=== PATIENT | female | born 1990 | race African-American/Black ===

== ENCOUNTER 2016-11-01 23:31 | Emergency (ER) | payer OTHER ==
[~2016-11-01] VITALS: Ht 160 cm; Wt 61.7 kg
[2016-11-01 23:40] VITALS: BP 143/98
--- NOTE | 2016-11-02 00:14 | PHYS DOC ---
Past Medical History Past Medical History: No Pertinent History Past Surgical History: Appendectomy, Other Additional Past Surgical Histo: Strabismus Alcohol Use: Rarely Drug Use: None, Marijuana Adult General Chief Complaint Chief Complaint: WOUND CHECK HPI HPI 26-year-old female presenting to the emergency department today with a wound on the right lower extremity. She reports it previously being an abscess on October 15. He was draining spontaneously. She was treated with antibiotics. Testing demonstrated positive for MRSA. Clindamycin used. Over the past 3 weeks patient has developed ulceration. She denies fevers chills or any redness. Onset 3 weeks. Location right lower extremity. Duration constant. No alleviating factors. Review of Systems Review of Systems ROS negative for headache fevers chills chest cough chest pain shortness of breath nausea vomiting. All other review of systems is negative unless otherwise noted in history of present illness. Allergies Allergies Allergies Coded Allergies Type Severity Reaction Last Updated Verified No Known Drug Allergies 06/15/14 No Physical Exam Physical Exam Constitutional: Well developed, well nourished, no acute distress, non-toxic appearance. [] HENT: Normocephalic, atraumatic, bilateral external ears normal, oropharynx moist, no oral exudates, nose normal. Eyes: PERRLA, EOMI, conjunctiva normal, no discharge. [] Neck: Normal range of motion, no tenderness, supple, no stridor. Cardiovascular:Heart rate regular rhythm, no murmur Lungs & Thorax: Bilateral breath sounds clear to auscultation [] Abdomen: Bowel sounds normal, soft, no tenderness, no masses, no pulsatile masses. Skin: Warm, dry, no erythema, no rash. [] Back: No tenderness, no CVA tenderness. Extremities: The patient's right lower extremity is warm and well perfused with palpable pulse. 2 second cap refill. Patient has a one and half to 2 cm ulcerative lesion on the lateral aspect of her right leg. No erythema. Not warm to touch. Otherwise extremities are unremarkable. Neurologic: Alert and oriented X 3, normal motor function, normal sensory function, no focal deficits noted. Psychologic: Affect normal, judgement normal, mood normal. [] Current Patient Data Vital Signs Vital Signs Date Time Temp Pulse Resp B/P Pulse Ox O2 Delivery O2 Flow Rate FiO2 11/01/16 23:40 98.3 109 14 143/98 99 Room Air 98.3 EKG EKG [] Radiology/Procedures Radiology/Procedures [] Course & Med Decision Making Course & Med Decision Making Pertinent Labs and Imaging studies reviewed. (See chart for details) 18-year-old female presenting to the emergency department with a history of an abscess formation treated with antibiotics and cultured positive for MRSA. Currently the patient's wound has developed into an ulceration which is an atypical progression of an abscess. At this point I feel best to refer the patient to our dermatology team for evaluation over the next 4-5 days with possible biopsy. The wound did not look infected and I did not feel that antibiotic treatment would improve the patient's wound at this time. Dragon Disclaimer Dragon Disclaimer This electronic medical record was generated, in whole or in part, using a voice recognition dictation system. Departure Departure Impression: Primary Impression: Ulcer Disposition: 01 HOME, SELF-CARE Condition: STABLE Referrals: NO PCP (PCP) DEB DENG MD Patient Instructions: Skin Ulcer Additional Instructions: Thank you for allowing us to participate in your care today. Followup with with our clinical research analyst within the next 7 days. If you do not have a primary care provider you can ask for a list of our primary care providers. Return to the emergency department you have any new or concerning findings. This should be evaluated by the primary care physician and any necessary consulting services for continued management within a few days after discharge. Return to emergency room if you have any new or concerning symptoms including but not limited to fever, chills, nausea, vomiting, intractable pain, any new rashes, chest pain, shortness of air, uncontrolled bleeding, difficulty breathing, and/or vision loss. CANDACE BONNER MD Nov 02, 2016 00:14
== END 2016-11-02 00:20 | disposition home or self-care (01) ==
LOC: ER 23:31
DX: L97.919 Non-pressure chronic ulcer of unspecified part of right lower leg with unspecified severity (principal); F12.10 Cannabis abuse, uncomplicated
CPT/HCPCS: 99281

== ENCOUNTER 2021-09-30 11:37 | Emergency (ER) | payer OTHER ==
[~2021-09-30] VITALS: Ht 160 cm; Wt 64.0 kg
[2021-09-30 13:57] VITALS: BP 102/58
[2021-09-30] MEDS ORDERED: ACETAMINOPHEN 500 MG TABLET PO ONE (14:15)
[2021-09-30] MEDS ORDERED: IV NORMAL SALINE 1000ML BAG 1,000 ML IV ONE ×2 (14:15)
[2021-09-30] MEDS ORDERED: ONDANSETRON PF 4 MG/2 ML VIAL. IVP ONE (14:15)
[2021-09-30 14:36] LABS: BASO % 0 % (0-3); EOS % 0 % (0-3); HEMATOCRIT 36.3 % (36.0-47.0); HEMOGLOBIN 12.5 g/dL (12.0-15.5); LYMPH # 0.7 x10^3/uL (1.0-4.8); LYMPH % 7 % (24-48); MEAN CORPUSCULAR HEMOGLOBIN 32 pg (25-35); MEAN CORPUSCULAR HGB CONC 34 g/dL (31-37); MEAN CORPUSCULAR VOLUME 94 fL (79-100); MONO # 1.4 x10^3/uL (0.0-1.1); MONO % 13 % (0-9); NEUT # 8.5 x10^3/uL (1.8-7.7); NEUT % 80 % (31-73); PLATELET COUNT 296 x10^3/uL (140-400); RED BLOOD COUNT 3.87 x10^6/uL (3.50-5.40); RED CELL DISTRIBUTION WIDTH 12.7 % (11.5-14.5); WHITE BLOOD COUNT 10.7 x10^3/uL (4.0-11.0)
[2021-09-30 15:09] LABS: CALCIUM 8.7 mg/dL (8.5-10.1); GFR 77.3; POTASSIUM 3.2 mmol/L (3.5-5.1)
[2021-09-30 15:13] LABS: ALBUMIN 3.9 g/dL (3.4-5.0); ALBUMIN/GLOBULIN RATIO 1.1 (1.0-1.7); MAGNESIUM 1.9 mg/dL (1.8-2.4); TOTAL BILIRUBIN 0.6 mg/dL (0.2-1.0); TOTAL PROTEIN 7.5 g/dL (6.4-8.2)
--- NOTE | 2021-09-30 15:31 | RAD ---
XR ABDOMEN COMP ACUTE History: Constipation, fever Comparison: None. Technique: Frontal chest with upright and supine radiographs of the abdomen and pelvis. Findings: Chest: Clear lungs. Normal cardiomediastinal silhouette. Bowel gas pattern: No excessive stool burden. Free air: None. Abnormal calcifications: None. Bones: Normal. Other: None. Impression: 1. No acute cardiopulmonary findings. 2. No acute abdominal findings. No excessive stool burden. Electronically signed by: Kaden Marroquin MD (09/30/2021 3:28 PM) [facility]
--- NOTE | 2021-09-30 16:07 | PHYS DOC ---
Past Medical History Past Medical History: No Pertinent History Past Surgical History: Appendectomy, Other Additional Past Surgical Histo: EYE SURGERY Smoking Status: Never Smoker Alcohol Use: None Drug Use: None, Marijuana General Adult EDM: Chief Complaint: CONSTIPATION HPI: HPI: Patient is a 31 year old female with no significant medical problems who presents to the ED today complaining of constipation with abdominal pain, chills, nausea and vomiting. Patient states she has not had a bowel movement since Thanks. She states she has tried Gas-X and MiraLAX 2 days ago with no relief. She rates her abdomen pain as 10 out of 10 describes it as sharp and intermittent generalized throughout the abdomen. Reports nausea and vomiting today. Denies any fever. Denies any chance she is . Denies any coughing or congestion. Denies anything specifically exacerbating or relieving her pain. Review of Systems: Review of Systems: Constitutional: Reports chills, denies fever Eyes: Denies change in visual acuity. [] HENT: Denies nasal congestion or sore throat. [] Respiratory: Denies cough or shortness of breath. [] Cardiovascular: Denies chest pain or edema. [] GI: Reports abdominal pain with nausea and vomiting, bloody stools or diarrhea. [] : Denies dysuria. [] Musculoskeletal: Denies back pain or joint pain. [] Integument: Denies rash. [] Neurologic: Denies headache, focal weakness or sensory changes. [] Psychiatric: Denies depression or anxiety. [] Heart Score: C/O Chest Pain: N/A Risk Factors: Risk Factors: DM, Current or recent (<one month) smoker, HTN, HLP, family history of CAD, obesity. Risk Scores: Score 0 - 3: 2.5% MACE over next 6 weeks - Discharge Home Score 4 - 6: 20.3% MACE over next 6 weeks - Admit for Clinical Observation Score 7 - 10: 72.7% MACE over next 6 weeks - Early Invasive Strategies Current Medications: Current Medications Medications (Trade) Dose Ordered Sig/Jaren Start Time Stop Time Status Last Admin Dose Admin Acetaminophen (Tylenol) 1,000 mg 1X ONCE 09/30/21 14:15 09/30/21 14:16 DC 09/30/21 14:29 1,000 MG Ondansetron HCl (Zofran) 4 mg 1X ONCE 09/30/21 14:15 09/30/21 14:16 DC 09/30/21 14:28 4 MG Sodium Chloride 1,000 ml @ 1,000 mls/hr 1X ONCE 09/30/21 14:15 09/30/21 15:14 DC 09/30/21 15:26 1,000 MLS/HR Allergies: Allergies: Allergies Coded Allergies Type Severity Reaction Last Updated Verified No Known Drug Allergies 06/15/14 No Physical Exam: PE: Constitutional: Well developed, well nourished, no acute distress, non-toxic appearance. [] HENT: Normocephalic, atraumatic, bilateral external ears normal, oropharynx moist, no oral exudates, nose normal. [] Eyes: PERRLA, EOMI, conjunctiva normal, no discharge. [] Neck: Normal range of motion, no tenderness, supple, no stridor. [] Cardiovascular:Heart rate regular rhythm, no murmur [] Lungs & Thorax: Bilateral breath sounds clear to auscultation [] Abdomen: Flat abdomen. Bowel sounds normal, soft, diffuse tenderness throughout the abdomen, no obvious point tenderness to the right upper quadrant or right lower quadrant, negative Zamora sign, negative psoas sign, negative obturator sign, no masses, no pulsatile masses. [] Skin: Warm, dry, no erythema, no rash. [] Back: No tenderness, no CVA tenderness. [] Extremities: No tenderness, no cyanosis, no clubbing, ROM intact, no edema. [] Neurologic: Alert and oriented X 3, normal motor function, normal sensory function, no focal deficits noted. [] Psychologic: Affect normal, judgement normal, mood normal. [] Current Patient Data: Labs: Laboratory Tests Test 09/30/21 14:20 09/30/21 14:36 White Blood Count 10.7 x10^3/uL (4.0-11.0) Red Blood Count 3.87 x10^6/uL (3.50-5.40) Hemoglobin 12.5 g/dL (12.0-15.5) Hematocrit 36.3 % (36.0-47.0) Mean Corpuscular Volume 94 fL (79-100) Mean Corpuscular Hemoglobin 32 pg (25-35) Mean Corpuscular Hemoglobin Concent 34 g/dL (31-37) Red Cell Distribution Width 12.7 % (11.5-14.5) Platelet Count 296 x10^3/uL (140-400) Neutrophils (%) (Auto) 80 % (31-73) H Lymphocytes (%) (Auto) 7 % (24-48) L Monocytes (%) (Auto) 13 % (0-9) H Eosinophils (%) (Auto) 0 % (0-3) Basophils (%) (Auto) 0 % (0-3) Neutrophils # (Auto) 8.5 x10^3/uL (1.8-7.7) H Lymphocytes # (Auto) 0.7 x10^3/uL (1.0-4.8) L Monocytes # (Auto) 1.4 x10^3/uL (0.0-1.1) H Eosinophils # (Auto) 0.0 x10^3/uL (0.0-0.7) Basophils # (Auto) 0.0 x10^3/uL (0.0-0.2) Sodium Level 136 mmol/L (136-145) Potassium Level 3.2 mmol/L (3.5-5.1) L Chloride Level 98 mmol/L (98-107) Carbon Dioxide Level 29 mmol/L (21-32) Anion Gap 9 (6-14) Blood Urea Nitrogen 7 mg/dL (7-20) Creatinine 1.0 mg/dL (0.6-1.0) Estimated GFR (Cockcroft-Gault) 77.3 BUN/Creatinine Ratio 7 (6-20) Glucose Level 105 mg/dL (70-99) H Lactic Acid Level 0.9 mmol/L (0.4-2.0) Calcium Level 8.7 mg/dL (8.5-10.1) Magnesium Level 1.9 mg/dL (1.8-2.4) Total Bilirubin 0.6 mg/dL (0.2-1.0) Aspartate Amino Transferase (AST) 32 U/L (15-37) Alanine Aminotransferase (ALT) 66 U/L (14-59) H Alkaline Phosphatase 68 U/L (46-116) Total Protein 7.5 g/dL (6.4-8.2) Albumin 3.9 g/dL (3.4-5.0) Albumin/Globulin Ratio 1.1 (1.0-1.7) Lipase 41 U/L (73-393) L POC Urine HCG, Qualitative Hcg negative (Negative) Laboratory Tests 09/30/21 14:20 Laboratory Tests 09/30/21 14:20 Vital Signs: Vital Signs Date Time Temp Pulse Resp B/P (MAP) Pulse Ox O2 Delivery O2 Flow Rate FiO2 09/30/21 13:57 102.9 102 18 102/58 (73) 98 Room Air 102.9 EKG: EKG: [] Radiology/Procedures: Radiology/Procedures: []PROCEDURE: ACUTE ABDOMEN SERIES XR ABDOMEN COMP ACUTE History: Constipation, fever Comparison: None. Technique: Frontal chest with upright and supine radiographs of the abdomen and pelvis. Findings: Chest: Clear lungs. Normal cardiomediastinal silhouette. Bowel gas pattern: No excessive stool burden. Free air: None. Abnormal calcifications: None. Bones: Normal. Other: None. Impression: 1. No acute cardiopulmonary findings. 2. No acute abdominal findings. No excessive stool burden. Electronically signed by: Kaden Crocker MD (09/30/2021 3:28 PM) [facility] DICTATED and SIGNED BY: KADEN CROCKER MD DATE: 09/30/21 [id number] PROCEDURE: CT ABD PELV W/ IV CONTRST ONLY Exam: CT of abdomen and pelvis with contrast INDICATION: Abdominal pain TECHNIQUE: Sequential axial images through the abdomen and pelvis obtained following the administration of 75 mL of Omni 300 IV contrast. Sagittal and coronal reformatted images were reconstructed from the axial data and reviewed. Exposure: One or more of the following in the visualized dose reduction techniques were utilized for this examination: 1. Automated exposure control 2. Adjustment of the MA and/or KV according to patient size 3. Use of iterative of reconstructive technique Comparisons: None FINDINGS: Heart size is normal. No effusion. Strandy opacities at the dependent portion lungs likely representing atelectasis. No pleural effusion. Liver, spleen, pancreas, gallbladder and adrenals are unremarkable. There is a vague hypoenhancement of the right kidney with mild perinephric stranding noted. No hydronephrosis. No renal or ureteral calculi are identified. Bladder is partially distended and not well evaluated. Uterus is not enlarged. No abnormal adnexal mass. Large and small bowel are unremarkable. Appendix is not identified. No free intra-abdominal air or fluid. No obstruction. Abdominal aorta has normal course and caliber. Abdominal vasculature is patent. No enlarged abdominal lymph nodes are identified. No suspicious osseous lesions or acute fractures. IMPRESSION: Findings concerning for right-sided pyelonephritis. Correlate with urinalysis. Electronically signed by: Linda King MD (09/30/2021 4:35 PM) [facility] DICTATED and SIGNED BY: LINDA KING MD DATE: 09/30/21 [id number] Course & Med Decision Making: Course & Med Decision Making Pertinent Labs and Imaging studies reviewed. (See chart for details) This is a 31-year-old female patient presenting to the ED today complaining of constipation with abdominal pain, nausea and vomiting, symptoms began on . Temperature on arrival to the ED is 102.9, heart rate 102, respiration 18 on room air, blood pressure 102/58, O2 sats 98%, patient was started on the sepsis protocol CBC with a normal WBC, normal hemoglobin and hematocrit, CMP with potassium of 3.2, patient was given oral potassium replacement. Lactic is normal. Acute abdominal series was negative for any acute findings, no stool burden noted CT of the abdomen and pelvic noted for right-sided pyelonephritis. UA noted for moderate amount of leukocytes, nitrites. Patient was given IV fluids, Zofran, pain medicine, Rocephin IV. She is feeling better and interested in going home. Discharged on Cipro. Instructed to push fluids. Follow-up with PCP or urologist in the course of this week. Instructed to return to the ED at any point symptoms worsen Dragon Disclaimer: Christine Disclaimer: This electronic medical record was generated, in whole or in part, using a voice recognition dictation system. Departure Departure Impression: Primary Impression: Acute pyelonephritis Additional Impressions: Fever Qualified Codes: R50.9 - Fever, unspecified Nausea & vomiting Qualified Codes: R11.2 - Nausea with vomiting, unspecified Disposition: 01 HOME / SELF CARE / HOMELESS Condition: STABLE Referrals: NO PCP (PCP) Follow-up with your primary care doctor or urologist in 1 week Patient Instructions: Fever, Adult, Pyelonephritis, Adult Additional Instructions: You have acute pyelonephritis/kidney infection. Please take the prescribed antibiotics until completed. Take the pain medicine as needed for pain. Take ibuprofen for fever. Push fluids. Follow-up with your doctor in the course of this week. Come back to the ED at any point symptoms worsen Scripts Ondansetron (ONDANSETRON ODT) 4 Mg Tab.rapdis 1 TAB PO PRN Q6-8HRS, #16 TAB Prov: MARC RODRIGUEZ APRN 09/30/21 Hydrocodone Bit/Acetaminophen (HYDROCODONE-APAP 5-325 ) 1 Tab Tablet 1 TAB PO PRN Q6HRS PRN for PAIN, #20 TAB 0 Refills Prov: MARC RODRIGUEZ APRN 09/30/21 Ciprofloxacin Hcl (CIPROFLOXACIN HCL) 500 Mg Tablet 1 TAB PO BID, #14 TAB Prov: MARC RODRIGUEZ APRN 09/30/21 MARC RODRIGUEZ APRN Sep 30, 2021 16:07
[2021-09-30] MEDS ORDERED: IOHEXOL 300 MG/ML 100ML VIAL. ONE (16:14)
[2021-09-30] MEDS ORDERED: IOHEXOL 300 MG/ML 100ML VIAL. IV ONE (16:15)
[2021-09-30] MEDS ORDERED: POTASSIUM BICARB 20 MEQ EFFERVESCENT TABLET. PO ONE (16:15)
[2021-09-30 16:25] LABS: BILIRUBIN,URINE NEGATIVE (NEG); CLARITY,URINE CLOUDY; COLOR,URINE YELLOW; NITRITE,URINE POSITIVE (NEG); PROTEIN,URINE 100 mg/dL (NEG-TRACE)
[2021-09-30 16:33] LABS: AMORPHOUS SEDIMENT,UR PRESENT /HPF; BACTERIA,URINE MANY /HPF (0-FEW); WBC,URINE >40 /HPF (0-4)
--- NOTE | 2021-09-30 16:38 | RAD ---
Exam: CT of abdomen and pelvis with contrast INDICATION: Abdominal pain TECHNIQUE: Sequential axial images through the abdomen and pelvis obtained following the administrati on of 75 mL of Omni 300 IV contrast. Sagittal and coronal reformatted images were reconstructed from the axial data and reviewed. Exposure: One or more of the following in the visualized dose reduction techniques were utilized for this examination: 1. Automated exposure control 2. Adjustment of the MA and/or KV according to patient size 3. Use of iterative of reconstructive technique Comparisons: None FINDINGS: Heart size is normal. No effusion. Strandy opacities at the dependent portion lungs likely representi ng atelectasis. No pleural effusion. Liver, spleen, pancreas, gallbladder and adrenals are unremarkable. There is a vague hypoenhancement of the right kidney with mild perinephric stranding noted. No hydron ephrosis. No renal or ureteral calculi are identified. Bladder is partially distended and not well evaluated. Uterus is not enlarged. No abnormal adnexal ma ss. Large and small bowel are unremarkable. Appendix is not identified. No free intra-abdominal air or fl uid. No obstruction. Abdominal aorta has normal course and caliber. Abdominal vasculature is patent. No enlarged abdominal lymph nodes are identified. No suspicious osseous lesions or acute fractures. IMPRESSION: Findings concerning for right-sided pyelonephritis. Correlate with urinalysis. Electronically signed by: Linda Crump MD (09/30/2021 4:35 PM) [facility]
[2021-09-30] MEDS ORDERED: cefTRIAXone IV Push 1 GM VIAL. IVP ONE (16:45)
[2021-09-30] MEDS ORDERED: MORPHINE SULFATE 2 MG/ML INJ. IVP ONE (16:45)
[2021-09-30] MEDS ORDERED: ONDA4TAB12 PO (17:08)
[2021-09-30] MEDS ORDERED: CIPR500T2 PO (17:08)
[2021-09-30] MEDS ORDERED: HYDR-2761 PO (17:08)
== END 2021-09-30 17:31 | disposition home or self-care (01) ==
LOC: ER 11:37
DX: N10 Acute pyelonephritis (principal); R50.9 Fever, unspecified; R11.2 Nausea with vomiting, unspecified
CPT/HCPCS: 36415; 74022; 74177; 80053; 81001; 81025; 83605; 83690; 83735; 84145; 85025; 87040; 87086; 96361; 96374; 96375; 99284; J0696; J2270; J2405; J7030; Q9967